=== PATIENT | female | born 1985 | race Caucasian/White ===

== ENCOUNTER 2016-07-12 09:07 | Emergency (ER) | payer BC ==
--- NOTE | 2016-07-12 09:51 | UC ---
Throat Pain/Nasal Eriberto HPI - HPI Summary HPI Summary: SORE THROAT X 4 DAYS + NASAL CONGESTION , COUGH, NO FEVER, NO CHILL CONCERN ABOUT STREP THROAT - History of Current Complaint Chief Complaint: UCRespiratory Stated Complaint: SORE THROAT,SINUS,NO VOICE Time Seen by Provider: 07/12/16 09:31 Hx Obtained From: Patient Hx Last Menstrual Period: 07/11/16 ?: No Onset/Duration: Gradual Onset, Lasting Days - 4, Still Present Severity: Moderate Cough: Nonproductive Associated Signs & Symptoms: Positive: Hoarseness, Nasal Discharge. Negative: Wheezing, Sinus Discomfort, Fever, Vomiting, Rash - Allergies/Home Medications Allergies/Adverse Reactions: Allergies Allergy/AdvReac Type Severity Reaction Status Date / Time No Known Allergies Allergy Verified 07/12/16 09:35 PMH/Surg Hx/FS Hx/Imm Hx Previously Healthy: Yes - Surgical History Surgical History: None - Family History Known Family History: Negative: Diabetes - Social History Alcohol Use: Occasionally Substance Use Type: None Smoking Status (MU): Never Smoked Tobacco Review of Systems Constitutional: Negative Skin: Negative Eyes: Negative ENT: Sore Throat, Nasal Discharge Respiratory: Cough Cardiovascular: Negative Gastrointestinal: Negative Genitourinary: Negative All Other Systems Reviewed And Are Negative: Yes Physical Exam Triage Information Reviewed: Yes Appearance: Well-Appearing, No Pain Distress, Well-Nourished Vital Signs: Initial Vital Signs Temp 98.3 F 07/12/16 09:20 Pulse 84 07/12/16 09:20 Resp 14 07/12/16 09:20 BP 118/80 07/12/16 09:20 Pulse Ox 100 07/12/16 09:20 Vital Signs Reviewed: Yes Eyes: Positive: Conjunctiva Clear ENT: Positive: Normal ENT inspection, Hearing grossly normal, Pharyngeal erythema, Nasal congestion, Nasal drainage, TMs normal Neck exam: Normal Neck: Positive: Supple, Nontender, No Lymphadenopathy Respiratory: Positive: Chest non-tender, Lungs clear, Normal breath sounds Cardiovascular: Positive: RRR, No Murmur, Pulses Normal Musculoskeletal Exam: Normal Skin Exam: Normal Throat Pain/Nasal Course/Dx - Differential Dx/Diagnosis Provider Diagnoses: URI Discharge - Discharge Plan Condition: Stable Disposition: HOME Patient Education Materials: Upper Respiratory Infection (ED) Referrals: Radha Raymond PA [Primary Care Provider] - If Needed
[2016-07-12 09:53] VITALS: BP 118/80
== END 2016-07-12 10:20 | disposition home or self-care (01) ==
LOC: UCCORT 09:07
DX: J06.9 Acute upper respiratory infection, unspecified (principal)
CPT/HCPCS: 87651; 99211; G0463